=== PATIENT | female | born 1980 | race Caucasian/White ===

== ENCOUNTER 2024-01-10 08:39 | Day surgery (SDC) | payer BC ==
[2024-01-09 13:18] VITALS: BMI 24.5
[2024-01-10] MEDS ORDERED: PROPOFOL 40 ML ONE (10:23)
[2024-01-10] MEDS ORDERED: Midazolam HCl 2 mg/2 ml Vial ONE (10:23)
[2024-01-10] MEDS ORDERED: Fentanyl 250 MCG/5 ML VIAL ONE (10:23)
[2024-01-10] MEDS ORDERED: Lidocaine 1% w/Epinephrine 1:200K 30 ML VIAL ONE (10:26)
[2024-01-10 10:40] LABS: Hematocrit 37.3 % (34.9-44.5)
[2024-01-10] MEDS ORDERED: SUGAMMADEX SODIUM 200 MG/2 ML VIAL ONE ×2 (10:45→10:46)
[2024-01-10 10:47] LABS: BHCG - Serum Negative (NEGATIVE); Pregs Control Background? CLEAR/WHITE (CLR/WHITE); Pregs Control Bar Appear? YES (CONTROL BAR)
[2024-01-10] MEDS ORDERED: Dexamethasone 4 mg/ml Vial ONE (10:59)
[2024-01-10] MEDS ORDERED: Ondansetron PF 4 MG/2 ML Vial ONE (10:59)
[2024-01-10] MEDS ORDERED: Sevoflurane 250 ML INH ANEST BOTTLE ONE (11:00)
[2024-01-10] MEDS ORDERED: CEFAZOLIN 1 GM VIAL ONE (11:04)
[2024-01-10] MEDS ORDERED: Dexamethasone 20 MG/5 ML VIAL ONE (11:41)
[2024-01-10] MEDS ORDERED: fentaNYL 50 mcg/mL 1 mL Vial ONE (12:36)
[2024-01-10] MEDS ORDERED: Hydrocodone-Acetamin 15 ML UDCUP ONE (13:39)
== END 2024-01-10 14:15 | disposition home or self-care (01) ==
LOC: CSHSDC 08:39
PROVIDERS: ATTEND Otolaryngology Plastic Surgery within the Head & Neck
PROC: 0GTP0ZZ Resection of Left Inferior Parathyroid Gland, Open Approach (ICD-10-PCS; principal; 2024-01-10)
PROC: 0GTN0ZZ Resection of Right Inferior Parathyroid Gland, Open Approach (ICD-10-PCS; principal; 2024-01-10)
DX: E21.3 Hyperparathyroidism, unspecified (principal); D35.1 Benign neoplasm of parathyroid gland; Z79.01 Long term (current) use of anticoagulants; Z79.899 Other long term (current) drug therapy; Z98.890 Other specified postprocedural states
CPT/HCPCS: 36415; 84703; 85014; 88305; 88331; C1889; J0690; J1100; J2250; J2405; J2704; J3010